=== PATIENT | male | born 1990 | race Caucasian/White ===

== ENCOUNTER 2024-11-09 16:45 | Emergency (ER) | payer OTHER, BC ==
[~2024-11-09 16:45] MED LIST: Iopamidol-370 76% 500 ML MDV (1 ML CHARGE) ONE
[2024-11-09] MEDS ORDERED: Morphine 4 MG/ML VIAL ONE (17:02)
[2024-11-09] MEDS ORDERED: CEFAZOLIN 2 GM VIAL ONE (17:03)
[2024-11-09] MEDS ORDERED: Boostrix 0.5 ML (Tdap) VIAL (>/=7 yrs of age) ONE (17:03)
[2024-11-09] MEDS ORDERED: Sodium Chloride 0.9% 100 ML ONE (17:03)
[2024-11-09 18:09] LABS: #Basophils 0.04 10x3/uL (0.0-0.2); #Eosinophils Less than 0.03 10x3/uL (0.0-0.7); %Basophils 0.3 % (0.0-1.0); %Eosinophils 0.1 % (0.0-10.0); %Lymphocytes 9.3 % (21.0-51.0); %Monocytes 5.3 % (0.0-10.0); %Neutrophils 84.4 % (42.0-75.0); Hematocrit 43.7 % (42.0-52.0); Mean Corpuscular HGB CONC 34.3 g/dL (32.0-36.0); Mean Corpuscular Volume 96.3 fL (78.0-98.0); Mean Platelet Volume 10.5 fL (7.4-10.4); Platelet Count 237 10x3/uL (130-400); RBC Distribution Width 12.7 % (11.5-14.5); Red Blood Cell (RBC) Count 4.54 mill/uL (4.70-6.10)
[2024-11-09 18:37] LABS: Acetaminophen Less than 10 mcg/mL (Less than 10); Alcohol 206.8 mg/dL (Less than 10); Salicylate Less than 8.0 mg/dL (Less than 8.0)
[2024-11-09 18:39] LABS: ALT (SGPT) 32 U/L (8-55); AST (SGOT) 52 U/L (5-34); Albumin 4.4 g/dL (3.5-5.0); Alkaline Phosphatase 61 U/L (40-110); Anion Gap 14 mmol/L (10-20); BUN (Urea Nitrogen) 6 mg/dL (8.9-20.6); Bilirubin, Total 0.3 mg/dL (0.2-1.2); CK (CPK) 865 U/L (30-200); Calc. Creatinine Clearance 0 mL/min (70-130); Calcium 8.2 mg/dL (7.8-10.44); Carbon Dioxide 25 mmol/L (22-29); Chloride 105 mmol/L (98-107); Estimated GFR 98; Globulin 2.6 g/dL (2.4-3.5); Glucose 107 mg/dL (70-105); Potassium 3.6 mmol/L (3.5-5.1); Sodium 140 mmol/L (136-145)
[2024-11-09 21:02] LABS: #Basophils 0.06 10x3/uL (0.0-0.2); #Eosinophils Less than 0.03 10x3/uL (0.0-0.7); %Basophils 0.3 % (0.0-1.0); %Eosinophils 0.1 % (0.0-10.0); %Lymphocytes 8.8 % (21.0-51.0); %Monocytes 7.1 % (0.0-10.0); %Neutrophils 83.2 % (42.0-75.0); Hemoglobin 14.7 g/dL (14.0-18.0); Mean Corpuscular HGB CONC 34.2 g/dL (32.0-36.0); Mean Corpuscular Volume 96.4 fL (78.0-98.0); Mean Platelet Volume 10.5 fL (7.4-10.4); Platelet Count 237 10x3/uL (130-400); RBC Distribution Width 12.6 % (11.5-14.5); Red Blood Cell (RBC) Count 4.46 mill/uL (4.70-6.10)
[2024-11-09 21:11] LABS: Lactic Acid 2.38 mmol/L (0.5-2.2)
== END 2024-11-09 22:08 | disposition home or self-care (01) ==
LOC: ERS 16:45
DX: S22.32XA Fracture of one rib, left side, initial encounter for closed fracture (principal); S09.90XA Unspecified injury of head, initial encounter; S30.1XXA Contusion of abdominal wall, initial encounter; F10.129 Alcohol abuse with intoxication, unspecified; Z23 Encounter for immunization; V49.9XXA Car occupant (driver) (passenger) injured in unspecified traffic accident, initial encounter; Y93.89 Activity, other specified; Y92.410 Unspecified street and highway as the place of occurrence of the external cause; Y90.7 Blood alcohol level of 200-239 mg/100 ml
CPT/HCPCS: 36415; 70450; 70486; 71260; 72125; 74177; 80053; 80307; 82550; 83605; 85025; 86850; 86900; 86901; 90471; 90715; 93005; 96374; 96375; G0390; J2272; Q9967